=== PATIENT | male | born 1970 | race Caucasian/White ===

== ENCOUNTER 2017-04-26 04:31 | Emergency (ER) | payer BC ==
[~2017-04-26] VITALS: Ht 177.8 cm; Wt 107.2 kg
[2017-04-26 05:18] LABS: CHLORIDE 106 mEq/L (99-109); POTASSIUM 3.7 mEq/L (3.7-5.4); SODIUM 139 mEq/L (136-147)
[2017-04-26 05:20] LABS: GLUCOSE 131 mg/dL (70-99)
[2017-04-26 05:21] LABS: ANION GAP 9 MEQ/L (2-14)
[2017-04-26 05:24] LABS: GFR ESTIMATE (CALCULATED) > 59 mL/min/ (58.99-99999)
[2017-04-26 05:25] LABS: UREA NITROGEN (BUN) 18 mg/dL (9-23)
[2017-04-26 05:26] LABS: CREATINE KINASE 105 IU/L (1-294); TOTAL CK 105 IU/L (1-294)
[2017-04-26 05:32] LABS: CK-MB 1.2 ng/mL (0.0-4.9)
[2017-04-26 07:03] LABS: PROTHROMBIN TIME 11.8 SEC (10.2-12.9)
[2017-04-26 07:06] LABS: PTT 26.3 SEC (25-37)
[2017-04-26] MEDS ORDERED: XARELTO15 MG PO (07:34)
[2017-04-26] MEDS ORDERED: NORCO 5/3251 TABLET PO (07:39)
[2017-04-26 07:56] VITALS: BP 145/93
== END 2017-04-26 07:58 | disposition home or self-care (01) ==
LOC: EME 04:31
PROVIDERS: Emergency Medicine
DX: I82.491 Acute embolism and thrombosis of other specified deep vein of right lower extremity (principal); I82.431 Acute embolism and thrombosis of right popliteal vein
CPT/HCPCS: 80048; 82550; 82553; 83735; 85379; 85610; 85730; 93971; 99281; 99284